=== PATIENT | female | born 1975 | race Caucasian/White ===

== ENCOUNTER 2017-03-01 09:38 | Observation (INO) | payer BC ==
--- NOTE | 2017-03-01 10:26 | ED ---
General Adult HPI - General Chief complaint: Chest Pain Stated complaint: Chest Pain Time Seen by Provider: 03/01/17 10:02 Source: patient, RN notes reviewed Mode of arrival: wheelchair Limitations: no limitations - History of Present Illness Initial comments: 42-year-old female with no significant past medical history presents for evaluation of chest pressure and pain. Patient states that 6 days ago she was shoveling snow, developed substernal chest pressure and pain between her scapula. Pain improved with rest. Over the past 4 days she has had steadily worsening symptoms of chest pressure and mid scapular pain. Denies shortness of breath. Denies cough. Denies fever. Denies URI symptoms. Denies nausea vomiting or abdominal pain. Denies diaphoresis. Patient is a nonsmoker. She has no medical history of hypertension or diabetes. She is a strong family history of coronary artery disease in her father with had CAD beginning in his 40s. Patient's pain in the time my evaluation is present but minimal. - Related Data Home Medications Medication Instructions Recorded Confirmed No Known Home Medications [No 03/01/17 03/01/17 Known Home Medications] Allergies Allergy/AdvReac Type Severity Reaction Status Date / Time Penicillins Allergy Itching,DARLING Verified 03/01/17 10:36 SEA shellfish derived [Shellfish] Allergy Anaphylaxis Verified 03/01/17 10:36 ketorolac tromethamine AdvReac Unknown Verified 03/01/17 10:36 [From Toradol] tramadol AdvReac Nausea & Verified 03/01/17 10:36 Vomiting Review of Systems ROS Statement: Those systems with pertinent positive or pertinent negative responses have been documented in the HPI. ROS Other: All systems not noted in ROS Statement are negative. Past Medical History Past Medical History: GERD/Reflux Additional Past Medical History / Comment(s): VARICOSE VEINS, "POSS ARRHYTHMIA- FLUTTER", MIGRAINE HEADACHE History of Any Multi-Drug Resistant Organisms: None Reported Past Surgical History: Adenoidectomy, Cholecystectomy, Hysterectomy, Tonsillectomy Additional Past Surgical History / Comment(s): COLONOSCOPY/EGD Past Anesthesia/Blood Transfusion Reactions: Motion Sickness Additional Past Anesthesia/Blood Transfusion Reaction / Comment(s): STATES IT DID TAKE HER LONGER TO WAKE UP Past Psychological History: No Psychological Hx Reported Smoking Status: Never smoker Past Alcohol Use History: None Reported Past Drug Use History: None Reported General Exam Limitations: no limitations General appearance: alert, in no apparent distress Head exam: Present: atraumatic, normocephalic Eye exam: Present: normal appearance, PERRL ENT exam: Present: normal exam Neck exam: Present: normal inspection. Absent: tenderness, meningismus Respiratory exam: Present: normal lung sounds bilaterally. Absent: respiratory distress, chest wall tenderness Cardiovascular Exam: Present: regular rate, normal rhythm GI/Abdominal exam: Present: soft. Absent: distended, tenderness Extremities exam: Present: normal inspection, normal capillary refill, pedal edema (Trace bilateral pedal edema) Back exam: Present: normal inspection. Absent: tenderness Neurological exam: Present: alert, oriented X3, CN II-XII intact. Absent: motor sensory deficit Psychiatric exam: Present: normal affect, normal mood Skin exam: Present: warm, dry, intact. Absent: cyanosis, diaphoretic Course Vital Signs 03/01/17 03/01/17 03/01/17 09:52 11:25 11:52 Temperature 98.1 F Pulse Rate 72 62 71 Respiratory 20 16 16 Rate Blood Pressure 146/88 117/71 108/64 O2 Sat by Pulse 99 99 98 Oximetry EKG Findings - EKG Comments: EKG Findings:: EKG shows normal sinus rhythm, minimal voltage criteria for LVH, ventricular rate 69, AR interval 182, QS duration 88, QTC 443, there is T-wave abnormality in the precordial leads V2 and V3. No signs of ST segment elevation or depression Medical Decision Making - Medical Decision Making 42-year-old female presenting for evaluation of chest pain. Patient's pain is concerning for coronary artery disease. She has a strong family history of coronary artery disease. Laboratory studies reveal white blood cell count 10.9 , stable hemoglobin, normal electrolytes. Troponin negative, d-dimer negative, chest x-ray shows no acute findings. Patient denies rectal bleeding or melena. She is started on heparin. She will be admitted for serial cardiac enzymes and cardiology evaluation Diagnosis: Unstable angina - Lab Data Result diagrams: 03/01/17 10:38 03/01/17 10:38 Lab Results 03/01/17 03/01/17 03/01/17 Range/Units 10:38 10:38 10:38 WBC 10.9 H (3.8-10.6) k/uL RBC 4.48 (3.80-5.40) m/uL Hgb 13.8 (11.4-16.0) gm/dL Hct 39.4 (34.0-46.0) % MCV 87.9 (80.0-100.0) fL MCH 30.7 (25.0-35.0) pg MCHC 34.9 (31.0-37.0) g/dL RDW 12.6 (11.5-15.5) % Plt Count 325 (150-450) k/uL Neutrophils % 63 % Lymphocytes % 27 % Monocytes % 5 % Eosinophils % 2 % Basophils % 1 % Neutrophils # 6.9 (1.3-7.7) k/uL Lymphocytes # 3.0 (1.0-4.8) k/uL Monocytes # 0.5 (0-1.0) k/uL Eosinophils # 0.3 (0-0.7) k/uL Basophils # 0.1 (0-0.2) k/uL PT (9.0-12.0) sec INR (<1.2) APTT (22.0-30.0) sec D-Dimer (<0.60) mg/L FEU Sodium 140 (137-145) mmol/L Potassium 3.8 (3.5-5.1) mmol/L Chloride 100 (98-107) mmol/L Carbon Dioxide 29 (22-30) mmol/L Anion Gap 11 mmol/L BUN 12 (7-17) mg/dL Creatinine 0.72 (0.52-1.04) mg/dL Est GFR (MDRD) Af Amer >60 (>60 ml/min/1.73 sqM) Est GFR (MDRD) Non-Af >60 (>60 ml/min/1.73 sqM) Glucose 94 (74-99) mg/dL Calcium 10.2 (8.4-10.2) mg/dL Magnesium 2.0 (1.6-2.3) mg/dL Total Bilirubin 0.6 (0.2-1.3) mg/dL AST 20 (14-36) U/L ALT 34 (9-52) U/L Alkaline Phosphatase 74 (38-126) U/L Total Creatine Kinase 30 (30-135) U/L CK-MB (CK-2) <0.2 (0.0-2.4) ng/mL CK-MB (CK-2) Rel Index Troponin I <0.012 (0.000-0.034) ng/mL NT-Pro-B Natriuret Pep pg/mL Total Protein 7.8 (6.3-8.2) g/dL Albumin 4.8 (3.5-5.0) g/dL 03/01/17 03/01/17 Range/Units 10:38 10:38 WBC (3.8-10.6) k/uL RBC (3.80-5.40) m/uL Hgb (11.4-16.0) gm/dL Hct (34.0-46.0) % MCV (80.0-100.0) fL MCH (25.0-35.0) pg MCHC (31.0-37.0) g/dL RDW (11.5-15.5) % Plt Count (150-450) k/uL Neutrophils % % Lymphocytes % % Monocytes % % Eosinophils % % Basophils % % Neutrophils # (1.3-7.7) k/uL Lymphocytes # (1.0-4.8) k/uL Monocytes # (0-1.0) k/uL Eosinophils # (0-0.7) k/uL Basophils # (0-0.2) k/uL PT 9.5 (9.0-12.0) sec INR 1.0 (<1.2) APTT 23.1 (22.0-30.0) sec D-Dimer 0.37 (<0.60) mg/L FEU Sodium (137-145) mmol/L Potassium (3.5-5.1) mmol/L Chloride (98-107) mmol/L Carbon Dioxide (22-30) mmol/L Anion Gap mmol/L BUN (7-17) mg/dL Creatinine (0.52-1.04) mg/dL Est GFR (MDRD) Af Amer (>60 ml/min/1.73 sqM) Est GFR (MDRD) Non-Af (>60 ml/min/1.73 sqM) Glucose (74-99) mg/dL Calcium (8.4-10.2) mg/dL Magnesium (1.6-2.3) mg/dL Total Bilirubin (0.2-1.3) mg/dL AST (14-36) U/L ALT (9-52) U/L Alkaline Phosphatase (38-126) U/L Total Creatine Kinase (30-135) U/L CK-MB (CK-2) (0.0-2.4) ng/mL CK-MB (CK-2) Rel Index Troponin I (0.000-0.034) ng/mL NT-Pro-B Natriuret Pep 38 pg/mL Total Protein (6.3-8.2) g/dL Albumin (3.5-5.0) g/dL Critical Care Time Critical Care Time: Yes Total Critical Care Time: 35 Disposition Clinical Impression: Unstable angina pectoris Disposition: ADMITTED IP TO THIS [facility] Condition: Stable Referrals: Deni Guadarrama III, MD [Primary Care Provider] - 1-2 days Decision to Admit Reason: Admit from EC Decision Date: 03/01/17 Decision Time: 12:17
[2017-03-01 11:01] LABS: Basophils # (A) 0.1 k/uL (0-0.2); Basophils % (A) 1 %; Eosinophils # (A) 0.3 k/uL (0-0.7); Eosinophils % (A) 2 %; HCT 39.4 % (34.0-46.0); HGB 13.8 gm/dL (11.4-16.0); Lymphocytes % (A) 27 %; MCH 30.7 pg (25.0-35.0); MCHC 34.9 g/dL (31.0-37.0); MCV 87.9 fL (80.0-100.0); Mean Platelet Volume 6.8; Monocytes # (A) 0.5 k/uL (0-1.0); Monocytes % (A) 5 %; Neutrophils # (A) 6.9 k/uL (1.3-7.7); Neutrophils % (A) 63 %; Platelet Count 325 k/uL (150-450); RBC 4.48 m/uL (3.80-5.40); RDW 12.6 % (11.5-15.5); WBC 10.9 k/uL (3.8-10.6)
[2017-03-01 11:05] LABS: D-Dimer 0.37 mg/L FEU (<0.60)
[2017-03-01 11:07] LABS: ALT 34 U/L (9-52); AST 20 U/L (14-36); Albumin 4.8 g/dL (3.5-5.0); Alkaline Phosphatase 74 U/L (38-126); Anion Gap 11 mmol/L; Blood Urea Nitrogen 12 mg/dL (7-17); Calcium 10.2 mg/dL (8.4-10.2); Carbon Dioxide 29 mmol/L (22-30); Chloride 100 mmol/L (98-107); Glucose 94 mg/dL (74-99); Potassium 3.8 mmol/L (3.5-5.1); Sodium 140 mmol/L (137-145); Total Bilirubin 0.6 mg/dL (0.2-1.3); Total Protein 7.8 g/dL (6.3-8.2)
[2017-03-01 11:09] LABS: Partial Thromboplastin Time 23.1 sec (22.0-30.0); Prothrombin Time 9.5 sec (9.0-12.0)
--- NOTE | 2017-03-01 11:10 | XR ---
EXAMINATION TYPE: XR chest 2V DATE OF EXAM: 03/01/2017 COMPARISON: NONE HISTORY: Chest pain for 2 days. TECHNIQUE: Frontal and lateral views of the chest are obtained. FINDINGS: Somewhat low lung volumes are present. There is no focal air space opacity, pleural effusi on, or pneumothorax seen. The cardiac silhouette size is within normal limits. The osseous structu res are intact. Cholecystectomy clips are felt present. IMPRESSION: No acute cardiopulmonary process.
[2017-03-01 11:18] LABS: Creatine Kinase 30 U/L (30-135)
[2017-03-01 11:30] LABS: Creatine Kinase MB <0.2 ng/mL (0.0-2.4); Troponin I <0.012 ng/mL (0.000-0.034)
[2017-03-01] MEDS ORDERED: ASPIRIN 325 MG TAB PO STA (12:13)
[2017-03-01] MEDS ORDERED: HEPARIN SODIUM,PORCINE 5,000 UNIT/ML 1 ML VIAL IV ONE (12:13)
[2017-03-01] MEDS ORDERED: HEPARIN SOD,PORK IN 0.45% NACL 25,000 UNIT in 0.45% NACL 1 500ML.BAG IV SCH (12:15)
[2017-03-01] MEDS ORDERED: ACETAMINOPHEN TAB 325 MG TAB PO PRN (12:17)
[2017-03-01] MEDS ORDERED: NALOXONE 0.4 MG/ML 1 ML VIAL IV PRN (12:17)
[2017-03-01] MEDS ORDERED: SODIUM CHLORIDE 0.9% 1,000 ML IV SCH (12:45)
[2017-03-01] MEDS ORDERED: NITROGLYCERIN SL TABS 0.4 MG TAB SUBLINGUAL ONE (16:12)
[2017-03-01] MEDS ORDERED: NITROGLYCERIN SL TABS 0.4 MG TAB SUBLINGUAL PRN (16:15)
--- NOTE | 2017-03-01 18:26 | CONS ---
CONSULTATION CHIEF COMPLAINT: Chest pain. Christine is a 42-year-old lady with no significant past medical history who presented to hospital complaining of chest pain. She was shoveling snow on , has had episodes of pericardial chest pressure, mild to moderate intensity, that lasted for about half an hour. She was doing well on Monday, Monday, Monday and again on Monday, and today she had episodes of pericardial chest pressure. Due to this she was concerned and came to hospital. Her EKG shows sinus rhythm with inferior ST-T wave changes. Three sets of cardiac enzymes have been negative. The patient has strong family history of premature coronary artery disease. Given patient's symptomatology and strong family history of premature coronary artery disease, I am advising her to undergo cardiac catheterization. In the meantime, she will continue with aspirin, intravenous heparin, nitrates and beta blockers. PAST MEDICAL HISTORY: Significant for GERD. MEDICATIONS: As charted. ALLERGIES: NONE. FAMILY HISTORY: Significant for premature coronary artery disease. SOCIAL HISTORY: Negative for smoking, EtOH abuse or drug abuse. REVIEW OF SYSTEMS: HEENT is unremarkable. CARDIAC: As described above. RESPIRATORY: Negative. GI: Negative. GENITOURINARY: Negative. ALLERGY/IMMUNOLOGY: Negative. SKIN: Negative. MUSCULOSKELETAL: Negative. ENDOCRINE: Negative. IMMUNOLOGIC: Negative. DERMATOLOGIC: Negative. CONSTITUTIONAL: Negative. ONCOLOGICAL: Negative. HEMATOLOGICAL: Negative. Rest of the system review is not relevant. PHYSICAL EXAMINATION: Comfortable at rest. Vital signs are stable. There is jugular venous distention. Chest exam reveals good air entry bilaterally. Heart exam reveals first and second heart sounds. No gallop. No murmur. No rub. Abdomen is soft, nontender. Examination of extremities did not reveal any edema. Peripheral pulses are felt. 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 ASSESSMENT: Unstable angina. PLAN: The patient will undergo cardiac catheterization tomorrow morning. She has been explained the risks, benefits and alternatives, understood and accepted. MMODL / IJN: [id number] /
[2017-03-01 18:51] LABS: Creatine Kinase 25 U/L (30-135)
[2017-03-01 19:05] LABS: Creatine Kinase MB <0.2 ng/mL (0.0-2.4); Troponin I <0.012 ng/mL (0.000-0.034)
[2017-03-01] MEDS: HEPARIN SODIUM,PORCINE 5,000 UNIT/ML 1 ML VIAL IV PRN (20:30)
--- NOTE | 2017-03-01 22:15 | ECHOF ---
Referral Reason:chest pain MEASUREMENTS -------- HEIGHT: 162.6 cm WEIGHT: 88.5 kg BP: 109/63 IVSd: 1.2 cm (0.6 - 1.1) LVIDd: 5.0 cm (3.9 - 5.3) LVPWd: 1.1 cm (0.6 - 1.1) IVSs: 1.4 cm LVIDs: 2.8 cm LVPWs: 1.4 cm LAESV Index (A-L): 26.49 ml/m Ao Diam: 3.0 cm (2.0 - 3.7) AV Cusp: 1.6 cm (1.5 - 2.6) LA Diam: 2.8 cm (2.7 - 3.8) MV E Nate: 0.84 m/s MV DecT: 248 ms MV A Nate: 0.78 m/s MV E/A Ratio: 1.08 RAP: 5.00 mmHg RVSP: 24.79 mmHg FINDINGS -------- Sinus rhythm. This was a technically adequate study. The left ventricular size is normal. There is borderline concentric left ventricular hypertrophy. Overall left ventricular systolic function is normal with, an EF between 60 - 65 %. The right ventricle is normal in size and function. Normal LA size by volume 22+/-6 ml/m2. The right atrium is normal in size. Aortic valve is trileaflet and is mildly thickened. There is no evidence of aortic regurgitation. There is no evidence of aortic stenosis. The mitral valve is normal. There is trace mitral regurgitation. Trace tricuspid regurgitation present. Right ventricular systolic pressure is normal at < 35 mmHg. There is no evidence of pulmonary hypertension. The pulmonic valve is normal. The aortic root size is normal. IVC Not well visulized. The pericardium is normal. There is no pericardial effusion. CONCLUSIONS -------- 1. Sinus rhythm. 2. This was a technically adequate study. 3. The left ventricular size is normal. 4. There is borderline concentric left ventricular hypertrophy. 5. Overall left ventricular systolic function is normal with, an EF between 60 - 65 %. 6. Normal LA size by volume 22+/-6 ml/m2. 7. Aortic valve is trileaflet and is mildly thickened. 8. There is trace mitral regurgitation. 9. Trace tricuspid regurgitation present. 10. Right ventricular systolic pressure is normal at < 35 mmHg. 11. There is no evidence of pulmonary hypertension. 12. The aortic root size is normal. 13. IVC Not well visulized. 14. There is no pericardial effusion. DISPERSION MIXER: Sujit Ye RDCS
--- NOTE | 2017-03-01 22:25 | P.HPIM ---
History of Present Illness H&P Date: 03/01/17 Chief Complaint: Chest pain 42-year-old female with a past medical history of GERD and bilateral leg varicosities presents for evaluation of chest pressure and pain. Patient states that 6 days ago she was shoveling snow, developed substernal chest pressure and pain between her scapula. Pain improved with rest. Over the past 4 days she has had steadily worsening symptoms of chest pressure and mid scapular pain. Denies shortness of breath. Denies cough. Denies fever. Denies URI symptoms. Denies nausea vomiting or abdominal pain. Denies diaphoresis. Patient is a nonsmoker. She has no medical history of hypertension or diabetes. She is a strong family history of coronary artery disease in her father with had CAD beginning in his 40s. Patient's pain in the time my evaluation is present but minimal. eKG showed normal sinus rhythm troponin 2 negative Review of Systems Constitutional: Patient denies any fever or chills . No generalized weakness or weight loss. Abdomen: Patient denied nausea vomiting and diarrhea and abdominal pain. Cardiovascular: Patient does [id number] chest pain .noshort of breath no palpitations. Respiratory: patient denied any cough is from production. No shortness of breath Neurologic: Patient denied any numbness or tingling headache. Musculoskeletal: Patient denies any complaints of joint swelling or deformity. Skin: Negative Psychiatric: Negative Endocrine: No heat or cold intolerance. No recent weight gain. Genitourinary: No dysuria or hematuria. All other 14 point ROS negative except the above Past Medical History Past Medical History: GERD/Reflux, Vascular Disorder Additional Past Medical History / Comment(s): Alittle aflutter found on cardiac holter monitor, bilateral legs varicosities, splenomegaly, migraines. History of Any Multi-Drug Resistant Organisms: None Reported Past Surgical History: Adenoidectomy, Cholecystectomy, Hysterectomy, Tonsillectomy Additional Past Surgical History / Comment(s): EGD/COLONOSCOPY, hysterectomy with L salpingectomy. Past Anesthesia/Blood Transfusion Reactions: Motion Sickness Additional Past Anesthesia/Blood Transfusion Reaction / Comment(s): STATES IT DID TAKE HER LONGER TO WAKE UP Smoking Status: Never smoker - Past Family History Father Family Medical History: Coronary Artery Disease (CAD) Additional Family Medical History / Comment(s): Father has had CAD starting in his 40's. He has had CABG, cardiac stenting, caratid sx, pacer/AICD. Mother Family Medical History: No Reported History Additional Family Medical History / Comment(s): Mother is healthy Medications and Allergies Home Medications Medication Instructions Recorded Confirmed Type No Known Home Medications [No 03/01/17 03/01/17 History Known Home Medications] Allergies Allergy/AdvReac Type Severity Reaction Status Date / Time Penicillins Allergy Itching,DARLING Verified 03/01/17 10:36 SEA shellfish derived [Shellfish] Allergy Anaphylaxis Verified 03/01/17 10:36 ketorolac tromethamine AdvReac Unknown Verified 03/01/17 10:36 [From Toradol] tramadol AdvReac Nausea & Verified 03/01/17 10:36 Vomiting Physical Exam Vitals: Vital Signs Temp Pulse Pulse Resp BP BP Pulse Ox 03/01/17 15:53 97.7 F 66 16 109/63 98 03/01/17 13:05 97.8 F 16 125/68 100 03/01/17 12:38 98.9 F 61 16 119/73 98 03/01/17 11:52 71 16 108/64 98 03/01/17 11:25 62 16 117/71 99 03/01/17 09:52 98.1 F 72 20 146/88 99 Intake and Output 03/01/17 03/01/17 03/01/17 06:59 14:59 22:59 Other: # Voids 0 Weight 88.451 kg Patient Weight 03/02/17 06:59 Weight 88.451 kg PHYSICAL EXAMINATION: Patient is lying in the bed comfortably, no acute distress, awake alert and oriented.. HEENT: Normocephalic. Neck is supple. Pupils reactive. Nostrils clear. Oral cavity is moist. Ears reveal no drainage. Neck reveals no JVD, carotid bruits, or thyromegaly. CHEST EXAMINATION: Trachea is central. Symmetrical expansion. Lung stevenson clear to auscultation and percussion. CARDIAC: Normal S1, S2 with no gallops. No murmurs ABDOMEN: Soft. Bowel sounds normal. No organomegaly. No abdominal bruits. Extremities: reveal no edema. No clubbing or cyanosis Neurologically awake, alert, oriented x3 with well-coordinated movements. No focal deficits noted Skin: No rash or skin lesions. Psychiatric: Operative. Nonsuicidal Musculoskeletal: No joint swelling or deformity. Normal range of motion. Results CBC & Chem 7: 03/01/17 10:38 03/01/17 10:38 Labs: Abnormal Lab Results - Last 24 Hours (Table) 03/01/17 Range/Units 10:38 WBC 10.9 H (3.8-10.6) k/uL Thrombosis Risk Factor Assmnt - Choose All That Apply Any of the Below Risk Factors Present?: Yes Each Factor Represents 1 point: Age 41-60 years, Obesity (BMI >25), Varicose veins Other Risk Factors: No Other congenital or acquired thrombophilia - If yes, enter type in comment: No Thrombosis Risk Factor Assessment Total Risk Factor Score: 3 Thrombosis Risk Factor Assessment Level: Moderate Risk Assessment and Plan Assessment: #1 unstable angina #2 family history of coronary artery disease. plan: Patient with continued on telemetry monitoring. serial EKG and troponin.continue with heparin IV and cardiology is planning for catheterization tomorrow. patient was given aspirin. Further recommendations based on the clinical course. Time with Patient: Greater than 30
[2017-03-01 22:48] LABS: Creatine Kinase 22 U/L (30-135)
[2017-03-01 23:02] LABS: Creatine Kinase MB <0.2 ng/mL (0.0-2.4); Troponin I <0.012 ng/mL (0.000-0.034)
[2017-03-02] MEDS: HEPARIN SODIUM,PORCINE 5,000 UNIT/ML 1 ML VIAL IV PRN (04:49)
[2017-03-02 06:18] LABS: Basophils # (A) 0.1 k/uL (0-0.2); Basophils % (A) 1 %; Eosinophils # (A) 0.3 k/uL (0-0.7); Eosinophils % (A) 2 %; HCT 41.8 % (34.0-46.0); Lymphocytes # (A) 3.2 k/uL (1.0-4.8); Lymphocytes % (A) 22 %; MCH 29.8 pg (25.0-35.0); MCHC 33.6 g/dL (31.0-37.0); MCV 88.6 fL (80.0-100.0); Mean Platelet Volume 7.1; Monocytes # (A) 0.6 k/uL (0-1.0); Monocytes % (A) 4 %; Neutrophils # (A) 10.3 k/uL (1.3-7.7); Neutrophils % (A) 71 %; Platelet Count 359 k/uL (150-450); RBC 4.71 m/uL (3.80-5.40); RDW 12.7 % (11.5-15.5); WBC 14.6 k/uL (3.8-10.6)
[2017-03-02 06:28] LABS: ALT 38 U/L (9-52); AST 23 U/L (14-36); Albumin 4.7 g/dL (3.5-5.0); Alkaline Phosphatase 97 U/L (38-126); Anion Gap 13 mmol/L; Blood Urea Nitrogen 12 mg/dL (7-17); Calcium 10.6 mg/dL (8.4-10.2); Carbon Dioxide 25 mmol/L (22-30); Chloride 102 mmol/L (98-107); Glucose 108 mg/dL (74-99); Potassium 4.4 mmol/L (3.5-5.1); Sodium 140 mmol/L (137-145); Total Bilirubin 0.7 mg/dL (0.2-1.3); Total Protein 7.8 g/dL (6.3-8.2)
[2017-03-02] MEDS ORDERED: NITROGLYCERIN SL TABS 0.4 MG TAB SUBLINGUAL PRN (07:47)
[2017-03-02] MEDS ORDERED: SODIUM CHLORIDE 0.9% 1,000 ML in EMPTY BAG 1 BAG IV ONE (07:47)
[2017-03-02] MEDS ORDERED: ALPRAZolam 0.25 MG TAB PO PRN (07:47)
[2017-03-02] MEDS ORDERED: ALPRAZolam 0.5 MG TAB PO PRN (07:47)
[2017-03-02] MEDS ORDERED: ASPIRIN 325 MG TAB PO STA (07:47)
[2017-03-02] MEDS ORDERED: ATORVASTATIN 80 MG TAB PO STA (07:47)
[2017-03-02 08:36] VITALS: TEMP 97.6
[2017-03-02] MEDS ORDERED: IV FLUID CONTINUATION 475 ML IV ONE (10:03)
[2017-03-02] MEDS ORDERED: fentaNYL (PF) 50 MCG/ML 2 ML AMP IVP ONE (10:16)
[2017-03-02] MEDS ORDERED: diphenhydrAMINE 50 MG/ML 1 ML VIAL IVP ONE (10:16)
[2017-03-02] MEDS ORDERED: MIDAZOLAM 2 MG/2 ML VIAL IVP ONE (10:16)
[2017-03-02] MEDS ORDERED: LIDOCAINE 2% INJ 20 MG/ML SQ ONE (10:20)
[2017-03-02] MEDS ORDERED: RX INFO: IV CONTRAST WAS GIVEN 1 EACH MISC MISCELLANE PRN (10:34)
[2017-03-02] MEDS ORDERED: IOHEXOL 350 MG/ML 125ML BOTTLE INJ ONE (10:37)
[2017-03-02] MEDS ORDERED: SODIUM CHLORIDE 0.9% 1,000 ML IV SCH (10:45)
[2017-03-02 10:58] VITALS: RESP 16
--- NOTE | 2017-03-02 12:42 | CC ---
CARDIAC CATHETERIZATION REPORT INDICATION: Unstable angina. PROCEDURE NOTE: After obtaining informed consent, left heart catheterization and coronary angiogram were performed via the right femoral artery using standard [place] catheters. Patient tolerated the procedure well without any obvious immediate complications. FINDINGS: 1. HEMODYNAMICS: Left ventricular end-diastolic pressure is 14 to 16 mm. There is no significant gradient across the aortic valve. 2. LEFT VENTRICULOGRAM: Left ventriculogram is not performed. 3. ANGIOGRAPHIC DATA:. 4. LEFT MAIN CORONARY ARTERY: Left main coronary artery is a normal-sized vessel and is free of stenosis. It divides into left anterior descending coronary artery and circumflex coronary artery. 5. LAD and its branches, circumflex coronary artery and its branches are free of significant stenosis. 6. Circumflex coronary artery is a large dominant vessel. 7. Right coronary artery is a small nondominant vessel and is free of significant stenosis. CONCLUSION: Normal coronary arteries. PLAN: Patient's chest discomfort is probably noncardiac in origin and her management is going to be in the form of risk factor modification. Will leave the patient on 81 mg of aspirin daily given the family history. She will have her lipids checked in the outpatient. She will have a lipid profile done and lipid lowering agents will be initiated if necessary. MMODL / IJN: [id number] /
[2017-03-02 16:54] VITALS: BP 116/63; PULSE 72
--- NOTE | 2017-04-23 22:15 | P.DS ---
Providers Date of admission: 03/01/17 12:17 Expected date of discharge: 03/02/17 Attending physician: Jolene Duffy Consults: 03/01/17 12:18 Consult Physician Urgent Consulting Provider: Harman Garcias Consult Reason/Comments: Unstable angina Do you want consulting provider notified?: Yes Primary care physician: Deni Guadarrama Hospital Course: Discharge diagnosis #1 chest pain unlikely cardiac origin. Patient does have normal coronaries. Status post cardiac catheterization #2 family history of coronary artery disease. Hospital course 42-year-old female with a past medical history of GERD and bilateral leg varicosities presents for evaluation of chest pressure and pain. Patient states that 6 days ago she was shoveling snow, developed substernal chest pressure and pain between her scapula. Pain improved with rest. Over the past 4 days she has had steadily worsening symptoms of chest pressure and mid scapular pain. Denies shortness of breath. Denies cough. Denies fever. Denies URI symptoms. Denies nausea vomiting or abdominal pain. Denies diaphoresis. Patient is a nonsmoker. She has no medical history of hypertension or diabetes. She is a strong family history of coronary artery disease in her father with had CAD beginning in his 40s. Patient's pain in the time my evaluation is present but minimal. eKG showed normal sinus rhythm troponin 2 negative Patient was continued on telemetry monitoring. serial EKG and troponin negative.continue with heparin IV and cardiology did catheterization which showed normal coronaries. patient was given aspirin while in the hospital. Aspirin can be continued if the patient wishes to with family history of coronary disease. Otherwise patient is stable to be discharged home. Discharge physical examination done and vitals reviewed. Patient Condition at Discharge: Stable Plan - Discharge Summary Discharge Rx Participant: No New Discharge Prescriptions: Continue No Known Home Medications [No Known Home Medications] Discharge Medication List No Known Home Medications [No Known Home Medications] 03/01/17 [History] Follow up Appointment(s)/Referral(s): Deni Guadarrama III, MD [Primary Care Provider] - 3 Days (office closed in am for appt) Harman Garcias MD [STAFF PHYSICIAN] - 1 Week (call in am for folow up appt) Patient Instructions/Handouts: *[facility] - After Heart Catheterization - Third Loader Instructions, Left Heart Catheterization (DC), Heart Healthy Diet (DC) Discharge/Stand Alone Forms: Work/School Release, Work/Release Restrictions Form Discharge Disposition: HOME SELF-CARE
== END 2017-03-02 19:16 | disposition home or self-care (01) ==
LOC: EC 09:38 → 6SEL 12:17 → INTOOBSV 12:17
PROVIDERS: ADMIT Internal Medicine; ATTEND Internal Medicine
DX: I20.0 Unstable angina (principal); Z82.49 Family history of ischemic heart disease and other diseases of the circulatory system; K21.9 Gastro-esophageal reflux disease without esophagitis; E66.9 Obesity, unspecified; Z68.34 Body mass index [BMI] 34.0-34.9, adult; I83.90 Asymptomatic varicose veins of unspecified lower extremity; Z88.0 Allergy status to penicillin; Z88.8 Allergy status to other drugs, medicaments and biological substances; Z88.5 Allergy status to narcotic agent; Z91.013 Allergy to seafood
CPT/HCPCS: 99291; 96365 ×2; 96376 ×4; 36415; 94760; 93005; 93306; 93458; 85379; 83880; 80053 ×2; 82550; 82553; 83735 ×2; 84484; 85025 ×2; 85610; 85730 ×2; 71020; G0378 ×3; C1760; C1894; C1769; J2001; J2250; J1200; J1644 ×3; J3010; Q9967

== ENCOUNTER 2017-03-02 19:20 | Observation (INO) | payer BC ==
[2017-03-02] MEDS ORDERED: SODIUM CHLORIDE 0.9% 1,000 ML IV STA ×2 (19:41)
[2017-03-02 20:27] LABS: Basophils % (A) 0 %; Eosinophils # (A) 0.2 k/uL (0-0.7); Eosinophils % (A) 2 %; HCT 38.5 % (34.0-46.0); HGB 13.3 gm/dL (11.4-16.0); Lymphocytes # (A) 1.8 k/uL (1.0-4.8); Lymphocytes % (A) 18 %; MCH 30.3 pg (25.0-35.0); MCHC 34.4 g/dL (31.0-37.0); MCV 87.9 fL (80.0-100.0); Mean Platelet Volume 6.8; Monocytes # (A) 0.4 k/uL (0-1.0); Monocytes % (A) 4 %; Neutrophils # (A) 7.4 k/uL (1.3-7.7); Neutrophils % (A) 74 %; Platelet Count 348 k/uL (150-450); RBC 4.38 m/uL (3.80-5.40); RDW 12.7 % (11.5-15.5)
[2017-03-02 20:36] LABS: ALT 35 U/L (9-52); AST 23 U/L (14-36); Albumin 4.2 g/dL (3.5-5.0); Alkaline Phosphatase 69 U/L (38-126); Anion Gap 12 mmol/L; Blood Urea Nitrogen 13 mg/dL (7-17); Carbon Dioxide 28 mmol/L (22-30); Chloride 99 mmol/L (98-107); Glucose 106 mg/dL (74-99); Magnesium 2.1 mg/dL (1.6-2.3); Phosphorus 3.9 mg/dL (2.5-4.5); Potassium 4.4 mmol/L (3.5-5.1); Sodium 139 mmol/L (137-145); Total Bilirubin 0.7 mg/dL (0.2-1.3); Total Protein 6.8 g/dL (6.3-8.2)
[2017-03-02 20:43] LABS: Prothrombin Time 9.7 sec (9.0-12.0)
[2017-03-02 20:44] LABS: Partial Thromboplastin Time 19.3 sec (22.0-30.0)
[2017-03-02 20:48] LABS: Creatine Kinase 22 U/L (30-135)
[2017-03-02 21:02] LABS: Creatine Kinase MB <0.2 ng/mL (0.0-2.4); Troponin I <0.012 ng/mL (0.000-0.034)
[2017-03-02] MEDS ORDERED: RX INFO: IV CONTRAST WAS GIVEN 1 EACH MISC MISCELLANE PRN (21:02)
[2017-03-02] MEDS ORDERED: NITROGLYCERIN SL TABS 0.4 MG TAB SUBLINGUAL PRN (21:03)
[2017-03-02] MEDS ORDERED: ASPIRIN 81 MG PO STA (21:08)
[2017-03-02] MEDS ORDERED: MORPHINE SULFATE 5 MG/ML SYRINGE IV PRN (21:08)
[2017-03-02] MEDS ORDERED: SODIUM CHLORIDE 0.9% 1,000 ML IV SCH (21:15)
--- NOTE | 2017-03-02 21:17 | ED ---
General Adult HPI - General Chief complaint: Syncope Stated complaint: Vomiting Time Seen by Provider: 03/02/17 19:30 Source: patient, RN notes reviewed, old records reviewed Mode of arrival: ambulatory Limitations: no limitations - History of Present Illness Initial comments: This is a 42-year-old female to the ER for evaluation. Patient has no significant medical history. Patient coming in for near syncopal event. Patient became very very pale lightheaded dizzy and diaphoretic and discharged today. Patient was recently admitted for chest pain and had heart catheterization. Patient also complaining of right leg numbness and tingling. Denies chest pain. significant shortness of breath at this time. No new medications were started her ER stay - Related Data Home Medications Medication Instructions Recorded Confirmed No Known Home Medications [No 03/01/17 03/02/17 Known Home Medications] Allergies Allergy/AdvReac Type Severity Reaction Status Date / Time Penicillins Allergy Itching,DARLING Verified 03/02/17 19:49 SEA shellfish derived [Shellfish] Allergy Anaphylaxis Verified 03/02/17 19:49 ketorolac tromethamine AdvReac Unknown Verified 03/02/17 19:49 [From Toradol] tramadol AdvReac Nausea & Verified 03/02/17 19:49 Vomiting Review of Systems ROS Statement: Those systems with pertinent positive or pertinent negative responses have been documented in the HPI. ROS Other: All systems not noted in ROS Statement are negative. Past Medical History Past Medical History: GERD/Reflux, Vascular Disorder Additional Past Medical History / Comment(s): Alittle aflutter found on cardiac holter monitor, bilateral legs varicosities, splenomegaly, migraines. History of Any Multi-Drug Resistant Organisms: None Reported Past Surgical History: Adenoidectomy, Cholecystectomy, Heart Catheterization, Hysterectomy, Tonsillectomy Additional Past Surgical History / Comment(s): EGD/COLONOSCOPY, hysterectomy with L salpingectomy. Past Anesthesia/Blood Transfusion Reactions: Motion Sickness Additional Past Anesthesia/Blood Transfusion Reaction / Comment(s): STATES IT DID TAKE HER LONGER TO WAKE UP Past Psychological History: No Psychological Hx Reported Smoking Status: Never smoker Past Alcohol Use History: None Reported Past Drug Use History: None Reported - Past Family History Father Family Medical History: Coronary Artery Disease (CAD) Additional Family Medical History / Comment(s): Father has had CAD starting in his 40's. He has had CABG, cardiac stenting, caratid sx, pacer/AICD. Mother Family Medical History: No Reported History Additional Family Medical History / Comment(s): Mother is healthy General Exam Limitations: no limitations General appearance: alert, in no apparent distress Head exam: Present: atraumatic, normocephalic, normal inspection Eye exam: Present: normal appearance, PERRL, EOMI. Absent: scleral icterus, conjunctival injection, periorbital swelling ENT exam: Present: normal exam, mucous membranes moist Neck exam: Present: normal inspection. Absent: tenderness, meningismus, lymphadenopathy Respiratory exam: Present: normal lung sounds bilaterally. Absent: respiratory distress, wheezes, rales, rhonchi, stridor Cardiovascular Exam: Present: regular rate, normal rhythm, normal heart sounds. Absent: systolic murmur, diastolic murmur, rubs, gallop, clicks GI/Abdominal exam: Present: soft, normal bowel sounds. Absent: distended, tenderness, guarding, rebound, rigid Extremities exam: Present: normal inspection, full ROM, normal capillary refill. Absent: tenderness, pedal edema, joint swelling, calf tenderness Back exam: Present: normal inspection Neurological exam: Present: alert, oriented X3, CN II-XII intact Psychiatric exam: Present: normal affect, normal mood Skin exam: Present: warm, dry, intact, normal color. Absent: rash Course Vital Signs 03/02/17 03/02/17 03/02/17 19:24 19:30 20:24 Temperature 97.0 F L Pulse Rate 71 74 Pulse Rate [ 74 Automatic Glove Former ] Respiratory 18 18 Rate Blood Pressure 86/50 105/63 O2 Sat by Pulse 97 98 Oximetry 03/02/17 21:43 Temperature 97.0 F L Pulse Rate 65 Pulse Rate [ Automatic Glove Former ] Respiratory 20 Rate Blood Pressure 112/80 O2 Sat by Pulse 98 Oximetry - Reevaluation(s) Reevaluation #1: 03/02/17 21:16 Patient still feels weak dizzy and lightheaded Reevaluation #2: 03/02/17 21:16 ER visit as well as inpatient visit is reviewed EKG Findings - EKG Comments: EKG Findings:: EKG shows normal sinus rhythm rate of 60, NE 204, QRS 88, QTc 440 Medical Decision Making - Medical Decision Making 42 female to ER for evaluation of syncope. Patient has no headache chest pain shortness of breath. Patient states she feels lightheaded and dizzy. Patient was just admitted to the hospital in regards of chest pain and had heart catheterization. Upon discharge patient became very lightheaded dizzy and diaphoretic. - Lab Data Result diagrams: 03/02/17 20:16 03/02/17 20:16 Lab Results 03/02/17 03/02/17 03/02/17 Range/Units 20:16 20:16 20:16 WBC 10.0 (3.8-10.6) k/uL RBC 4.38 (3.80-5.40) m/uL Hgb 13.3 (11.4-16.0) gm/dL Hct 38.5 (34.0-46.0) % MCV 87.9 (80.0-100.0) fL MCH 30.3 (25.0-35.0) pg MCHC 34.4 (31.0-37.0) g/dL RDW 12.7 (11.5-15.5) % Plt Count 348 (150-450) k/uL Neutrophils % 74 % Lymphocytes % 18 % Monocytes % 4 % Eosinophils % 2 % Basophils % 0 % Neutrophils # 7.4 (1.3-7.7) k/uL Lymphocytes # 1.8 (1.0-4.8) k/uL Monocytes # 0.4 (0-1.0) k/uL Eosinophils # 0.2 (0-0.7) k/uL Basophils # 0.0 (0-0.2) k/uL PT (9.0-12.0) sec INR (<1.2) APTT (22.0-30.0) sec Sodium 139 (137-145) mmol/L Potassium 4.4 (3.5-5.1) mmol/L Chloride 99 (98-107) mmol/L Carbon Dioxide 28 (22-30) mmol/L Anion Gap 12 mmol/L BUN 13 (7-17) mg/dL Creatinine 0.90 (0.52-1.04) mg/dL Est GFR (MDRD) Af Amer >60 (>60 ml/min/1.73 sqM) Est GFR (MDRD) Non-Af >60 (>60 ml/min/1.73 sqM) Glucose 106 H (74-99) mg/dL Plasma Lactic Acid Justus (0.7-2.0) mmol/L Calcium 10.0 (8.4-10.2) mg/dL Phosphorus 3.9 (2.5-4.5) mg/dL Magnesium 2.1 (1.6-2.3) mg/dL Total Bilirubin 0.7 (0.2-1.3) mg/dL AST 23 (14-36) U/L ALT 35 (9-52) U/L Alkaline Phosphatase 69 (38-126) U/L Total Creatine Kinase 22 L (30-135) U/L CK-MB (CK-2) <0.2 (0.0-2.4) ng/mL CK-MB (CK-2) Rel Index Troponin I <0.012 (0.000-0.034) ng/mL Total Protein 6.8 (6.3-8.2) g/dL Albumin 4.2 (3.5-5.0) g/dL 03/02/17 03/02/17 Range/Units 20:16 20:16 WBC (3.8-10.6) k/uL RBC (3.80-5.40) m/uL Hgb (11.4-16.0) gm/dL Hct (34.0-46.0) % MCV (80.0-100.0) fL MCH (25.0-35.0) pg MCHC (31.0-37.0) g/dL RDW (11.5-15.5) % Plt Count (150-450) k/uL Neutrophils % % Lymphocytes % % Monocytes % % Eosinophils % % Basophils % % Neutrophils # (1.3-7.7) k/uL Lymphocytes # (1.0-4.8) k/uL Monocytes # (0-1.0) k/uL Eosinophils # (0-0.7) k/uL Basophils # (0-0.2) k/uL PT 9.7 (9.0-12.0) sec INR 1.0 (<1.2) APTT 19.3 L (22.0-30.0) sec Sodium (137-145) mmol/L Potassium (3.5-5.1) mmol/L Chloride (98-107) mmol/L Carbon Dioxide (22-30) mmol/L Anion Gap mmol/L BUN (7-17) mg/dL Creatinine (0.52-1.04) mg/dL Est GFR (MDRD) Af Amer (>60 ml/min/1.73 sqM) Est GFR (MDRD) Non-Af (>60 ml/min/1.73 sqM) Glucose (74-99) mg/dL Plasma Lactic Acid Justus 1.1 (0.7-2.0) mmol/L Calcium (8.4-10.2) mg/dL Phosphorus (2.5-4.5) mg/dL Magnesium (1.6-2.3) mg/dL Total Bilirubin (0.2-1.3) mg/dL AST (14-36) U/L ALT (9-52) U/L Alkaline Phosphatase (38-126) U/L Total Creatine Kinase (30-135) U/L CK-MB (CK-2) (0.0-2.4) ng/mL CK-MB (CK-2) Rel Index Troponin I (0.000-0.034) ng/mL Total Protein (6.3-8.2) g/dL Albumin (3.5-5.0) g/dL - Radiology Data Radiology results: report reviewed (CT a chest and x-ray negative), image reviewed Disposition Clinical Impression: Vasovagal syncope Disposition: ADMITTED IP TO THIS HOSP Condition: Undetermined
--- NOTE | 2017-03-02 21:54 | CT ---
EXAMINATION TYPE: CT angio chest DATE OF EXAM: 03/02/2017 9:45 PM COMPARISON: NONE HISTORY: Heart cath today. Pain at right groin and chest pain and heaviness. CT DLP: 301.20 mGycm Automated exposure control for dose reduction was used. CONTRAST: CTA scan of the thorax is performed with IV Contrast, patient injected with 58 mL of Omnipaque 350, p ulmonary embolism protocol. . FINDINGS: LUNGS: The lungs are grossly clear, there is no concerning parenchymal mass or nodule identified. T here is no pleural effusion or pneumothorax seen. The tracheobronchial tree is patent. MEDIASTINUM: There is satisfactory enhancement of the pulmonary artery and its branches, there is no CT evidence for pulmonary embolism. There are no greater than 1 cm hilar or mediastinal lymph nodes. No pericardial effusion is seen. SKELETAL STRUCTURES: Unremarkable. OTHER: No additional significant abnormality is seen. IMPRESSION: NO ACUTE PROCESS.
[2017-03-02 23:18] LABS: Appearance,Urine Clear (Clear); Bilirubin,Urine Negative (Negative); Blood,Urine Negative (Negative); Color,Urine Light Yellow; Glucose,Urine (UA) Negative (Negative); Ketones,Urine Negative (Negative); Leukocyte Esterase,Urine Negative (Negative); Nitrite,Urine Negative (Negative); PH, Urine 6.5 (5.0-8.0); Protein,Urine Negative (Negative); Specific Gravity,Urine 1.015 (1.001-1.035); Urobilinogen,Urine <2.0 mg/dL (<2.0)
[2017-03-03 02:58] LABS: Creatine Kinase 22 U/L (30-135)
[2017-03-03 03:11] LABS: Creatine Kinase MB <0.2 ng/mL (0.0-2.4); Troponin I <0.012 ng/mL (0.000-0.034)
[2017-03-03] MEDS ORDERED: ASPIRIN 325 MG TAB PO SCH (09:00)
[2017-03-03] MEDS ORDERED: ASPIRIN 325 MG TAB ONE (09:00)
[2017-03-03] MEDS ORDERED: ENOXAPARIN 40 MG/0.4 ML SYRINGE SQ SCH (09:00)
[2017-03-03 10:16] VITALS: BP 131/74; PULSE 74; RESP 18; TEMP 98
[2017-03-03 10:23] LABS: Cholesterol 131 mg/dL (<200); HDL Cholesterol 49 mg/dL (40-60); LDL Cholesterol,Calculated 70 mg/dL (0-99); Triglycerides 58 mg/dL (<150)
[2017-03-03 10:40] LABS: Creatine Kinase 22 U/L (30-135)
[2017-03-03 10:53] LABS: Creatine Kinase MB <0.2 ng/mL (0.0-2.4); Troponin I <0.012 ng/mL (0.000-0.034)
--- NOTE | 2017-03-04 11:58 | P.DS ---
Providers Date of admission: 03/02/17 21:03 Expected date of discharge: 03/03/17 Attending physician: Zoila Bettencourt Consults: 03/02/17 21:03 Consult Physician Urgent Consulting Provider: Jamin Bhatia Consult Reason/Comments: syncope Do you want consulting provider notified?: Yes Primary care physician: Deni Guadarrama [facility] Course: Please refer to my HPI Patient Condition at Discharge: Undetermined Plan - Discharge Summary Discharge Rx Participant: No New Discharge Prescriptions: No Action No Known Home Medications [No Known Home Medications] Discharge Medication List No Known Home Medications [No Known Home Medications] 03/01/17 [History] Follow up Appointment(s)/Referral(s): Deni Guadarrama III, MD [Primary Care Provider] - 1-2 days
--- NOTE | 2017-03-04 11:58 | P.HPIM ---
History of Present Illness H&P Date: 03/03/17 Patient is a 42-year-old female came in to ER after patient had a syncopal episode. Patient the came in with chest pain during her previous hospital admission couple days ago and patient underwent cardiac ablation which did not show any coronary occlusive disease. Patient will after her discharge went to her car had a sharp pain in the right groin area where she had a chronic catheterization and felt dizzy lightheaded pale and had a syncopal episode which appears to be negative typical vasovagal event. Patient was later evaluated by cardiology and right groin did not show any hematoma the cleared for discharge patient most probably has vasovagal event patient was hydrated overnight. Patient denied any fever chills nausea vomiting EKG essentially within normal limits. Review of Systems REVIEW OF SYSTEMS: CONSTITUTIONAL: No fever, no malaise, no fatigue. HEENT: No recent visual problems or hearing problems. Denied any sore throat. CARDIOVASCULAR: No chest pain, orthopnea, PND, no palpitations, PULMONARY: No shortness of breath, no cough, no hemoptysis. GASTROINTESTINAL: No diarrhea, no nausea, no vomiting, no abdominal pain. Normoactive bowel sounds. NEUROLOGICAL: No headaches, no weakness, no numbness. HEMATOLOGICAL: Denies any bleeding or petechiae. GENITOURINARY: Denies any burning micturition, frequency, or urgency. MUSCULOSKELETAL/RHEUMATOLOGICAL: Denies any joint pain, swelling, or any muscle pain. ENDOCRINE: Denies any polyuria or polydipsia. The rest of the 14-point review of systems is negative. Past Medical History Past Medical History: GERD/Reflux, Vascular Disorder Additional Past Medical History / Comment(s): Alittle aflutter found on cardiac holter monitor, bilateral legs varicosities, splenomegaly, migraines, IBD History of Any Multi-Drug Resistant Organisms: None Reported Past Surgical History: Adenoidectomy, Cholecystectomy, Heart Catheterization, Hysterectomy, Tonsillectomy Additional Past Surgical History / Comment(s): EGD/COLONOSCOPY, hysterectomy with L salpingectomy. Past Anesthesia/Blood Transfusion Reactions: Motion Sickness Additional Past Anesthesia/Blood Transfusion Reaction / Comment(s): STATES IT DID TAKE HER LONGER TO WAKE UP Past Psychological History: No Psychological Hx Reported Additional Psychological History / Comment(s): Pt resides with her 2 children, ages 6 and 8yrs. 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 She is independent. Smoking Status: Never smoker Past Alcohol Use History: None Reported Past Drug Use History: None Reported - Past Family History Father Family Medical History: Coronary Artery Disease (CAD) Additional Family Medical History / Comment(s): Father has had CAD starting in his 40's. He has had CABG, cardiac stenting, caratid sx, pacer/AICD. Mother Family Medical History: No Reported History Additional Family Medical History / Comment(s): Mother is healthy Medications and Allergies Home Medications Medication Instructions Recorded Confirmed Type No Known Home Medications [No 03/01/17 03/02/17 History Known Home Medications] Allergies Allergy/AdvReac Type Severity Reaction Status Date / Time Penicillins Allergy Itching,DARLING Verified 03/02/17 19:49 SEA shellfish derived [Shellfish] Allergy Anaphylaxis Verified 03/02/17 19:49 ketorolac tromethamine AdvReac Unknown Verified 03/02/17 19:49 [From Toradol] latex AdvReac Rash/Hives Verified 03/02/17 22:59 tramadol AdvReac Nausea & Verified 03/02/17 19:49 Vomiting Physical Exam PHYSICAL EXAMINATION: GENERAL: The patient is alert and oriented x3, not in any acute distress. Well developed, well nourished. HEENT: Pupils are round and equally reacting to light. EOMI. No scleral icterus. No conjunctival pallor. Normocephalic, atraumatic. No pharyngeal erythema. No thyromegaly. CARDIOVASCULAR: S1 and S2 present. No murmurs, rubs, or gallops. PULMONARY: Chest is clear to auscultation, no wheezing or crackles. ABDOMEN: Soft, nontender, nondistended, normoactive bowel sounds. No palpable organomegaly. MUSCULOSKELETAL: No joint swelling or deformity. EXTREMITIES: No cyanosis, clubbing, or pedal edema. NEUROLOGICAL: Gross neurological examination did not reveal any focal deficits. SKIN: No rashes. Results CBC & Chem 7: 03/02/17 20:16 03/02/17 20:16 Labs: Microbiology - Last 24 Hours (Table) 03/02/17 23:01 Urine Culture - Preliminary Urine,Clean Catch Thrombosis Risk Factor Assmnt - Choose All That Apply Any of the Below Risk Factors Present?: Yes Each Factor Represents 1 point: Age 41-60 years, Hx of IBD, Obesity (BMI >25) Other Risk Factors: No Other congenital or acquired thrombophilia - If yes, enter type in comment: No Thrombosis Risk Factor Assessment Total Risk Factor Score: 3 Thrombosis Risk Factor Assessment Level: Moderate Risk Assessment and Plan Plan: #1 syncope: Vasovagal event patient will be discharged today. #2 ruled out acute coronary syndromes recent cardiac catheterization which showed clean coronaries.
== END 2017-03-03 16:10 ==
LOC: EC 19:20 → 3OBS 21:03
PROVIDERS: ADMIT Hospitalist; ATTEND Hospitalist
DX: R55 Syncope and collapse (principal); R11.10 Vomiting, unspecified; R20.0 Anesthesia of skin; R20.2 Paresthesia of skin; K21.9 Gastro-esophageal reflux disease without esophagitis; I48.92 Unspecified atrial flutter; G43.909 Migraine, unspecified, not intractable, without status migrainosus; R10.31 Right lower quadrant pain; K58.9 Irritable bowel syndrome, unspecified; E66.9 Obesity, unspecified; Z98.890 Other specified postprocedural states; Z82.49 Family history of ischemic heart disease and other diseases of the circulatory system; Z88.5 Allergy status to narcotic agent; Z88.0 Allergy status to penicillin; Z91.013 Allergy to seafood; Z68.33 Body mass index [BMI] 33.0-33.9, adult
CPT/HCPCS: 96360; 99285; 36415; 93005; 80061; 80053; 82550 ×2; 82553 ×2; 83605; 83735; 84100; 84484 ×2; 85025; 85610; 85730; 81003; 87086; 71275; G0378 ×2; Q9967; 71020; 83880; 85379; 93306; 93458; 94760; 96365; 96376; 99291

== ENCOUNTER → 2017-06-01 | Outpatient (CLI) | payer BC ==
--- NOTE | 2017-06-02 11:41 | MM ---
Reason for exam: screening (asymptomatic). Last mammogram was performed 3 years and 8 months ago. History: Family history of breast cancer in maternal aunt at age 35. Physical Findings: A clinical breast exam by your physician is recommended on an annual basis and results should be correlated with mammographic findings. MG Screening Mammo w CAD Bilateral CC and MLO view(s) were taken. Prior study comparison: September 24, 2013, left breast MG work up mamm w CAD LT. September 10, 2013, bilateral MG screening mammo w CAD. The breast tissue is heterogeneously dense. This may lower the sensitivity of mammography. There is no discrete abnormality. No significant changes when compared with prior studies. ASSESSMENT: Negative, BI-RAD 1 RECOMMENDATION: Routine screening mammogram of both breasts in 1 year.
== END | disposition home or self-care (01) ==
LOC: RADMAMWWP 09:59
PROVIDERS: ATTEND Family Medicine
DX: Z12.31 Encounter for screening mammogram for malignant neoplasm of breast (principal)
CPT/HCPCS: 77067